=== PATIENT | male | born 1965 | race African-American/Black ===

== ENCOUNTER → 2016-06-21 | Outpatient (CLI) | payer OTHER ==
[2015-04-01 11:45] VITALS: BP 160/80
[~2016-06-21] MED LIST: ALLO300T PO; ASPI-482 PO; CARV25TA2 PO; CIPR500T94 PO; CLIN300C86 PO; HYDR-2666 PO; HYDR25TA9 PO; LISI-334 PO; LISI40TA PO; MELO-150 PO; METF850T2 PO; TERA1CAP3 PO; TERA2CAP3 PO; TRAM50TA PO
--- NOTE | 2016-06-21 10:25 | RAD ---
EXAM: Abdomen and pelvis CT without intravenous contrast. HISTORY: Microhematuria. Left-sided pain. TECHNIQUE: Computed tomographic images of the abdomen and pelvis were obtained without contrast. Multiplanar reformatting was performed. COMPARISON: 01/07/2015. FINDINGS: Evaluation of the lower thorax demonstrates bilateral basilar atelectasis. There is cardiomegaly and a small pericardial effusion. There is hepatomegaly and hepatic steatosis. The gallbladder, pancreas, spleen and adrenal glands are unremarkable. There is no evidence of nephrolithiasis or obstructive uropathy. The bladder is decompressed. The prostate is normal in size. The appendix is normal in appearance. There is distal colonic diverticulosis without evidence of diverticulitis. There is no bowel obstruction. No pathologically enlarged lymph node is seen. There is an infrarenal abdominal aortic aneurysm measuring 3.2 cm. 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 There is degenerative change throughout the lumbar spine. 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 IMPRESSION: 1. No evidence of nephrolithiasis or obstructive uropathy. The previously demonstrated renal stones and right ureteropelvic junction stone or are no longer seen 2. Hepatomegaly and hepatic steatosis. 3. Colonic diverticulosis. 4. Cardiomegaly with small pericardial effusion, the latter which is new compared to the prior study. 5. 3.2 cm abdominal aortic aneurysm and 2.6 cm right common iliac artery aneurysm, stable in appearance. PQRS Compliance Statement: One or more of the following individualized dose reduction techniques were utilized for this examination: 1. Automated exposure control 2. Adjustment of the mA and/or kV according to patient size 3. Use of iterative reconstruction technique
== END | disposition home or self-care (01) ==
LOC: CT 09:18
PROVIDERS: ATTEND Family Medicine
DX: M54.5 Low back pain (principal); Z87.442 Personal history of urinary calculi
CPT/HCPCS: 74176

== ENCOUNTER 2016-08-16 14:11 | Inpatient (IN) | payer OTHER ==
[~2016-08-16] VITALS: Ht 180.3 cm; Wt 164.8 kg
[2016-08-16] VITALS (8 sets, daily range): BP systolic 150–189; BP diastolic 77–113
--- NOTE | 2016-08-16 14:47 | EKG ---
[facility] [address] [place] [address] Test Date: 2016-08-16 Test Time: 14:20:59 Pat Name: MAIKOL HERNANDEZ Department: Room: Gender: M Clinic Assistant: : 1965 Requested By: ROBE SERVIN Order Number: [id number] Reading MD: Alek Chaves Measurements Intervals [place] Rate: 88 P: 39 WV: 182 QRS: -20 QRSD: 86 T: -35 QT: 390 QTc: 476 Interpretive Statements SINUS RHYTHM LEFT ATRIAL ABNORMALITY LEFTWARD AXIS PROLONGED QT Electronically Signed On 09-04-2016 16:28:33 CDT by Alek Chaves
[2016-08-16] MEDS ORDERED: IPRATRPIUM/ALBUTEROL 0.5/2.5MG 3 ML NEBU. NEB ONE (15:30)
--- NOTE | 2016-08-16 15:31 | RAD ---
AP portable chest radiograph 08/16/2016 Clinical History: Shortness of breath for 3 days An AP portable erect digital radiograph of the chest was obtained. Comparison study is dated 04/18/2012. The cardiac silhouette is mildly enlarged. The thoracic aorta is tortuous. Prominence of the pulmonary vasculature is seen which could reflect mild CHF. Left midlung subsegmental atelectasis is noted. No pneumothorax or pleural effusion is seen. Degenerative changes are seen involving the thoracic spine. Impression: Prominence of the pulmonary vasculature is seen which could reflect mild CHF. Clinical correlation is recommended.
[2016-08-16 15:33] LABS: BASO # 0.1 x10^3/uL (0.0-0.2); BASO % 1 % (0-3); EOS % 7 % (0-3); HEMATOCRIT 46.9 % (39.0-53.0); LYMPH # 2.3 x10^3/uL (1.0-4.8); LYMPH % 26 % (24-48); MEAN CORPUSCULAR HEMOGLOBIN 30 pg (25-35); MEAN CORPUSCULAR HGB CONC 32 g/dL (31-37); MEAN CORPUSCULAR VOLUME 94 fL (79-100); MONO % 5 % (0-9); NEUT % 61 % (31-73); PLATELET COUNT 266 x10^3/uL (140-400); RED BLOOD COUNT 5.01 x10^6/uL (4.30-5.70)
--- NOTE | 2016-08-16 15:38 | PHYS DOC ---
Past Medical History Past Medical History: Asthma, High Cholesterol, Hypertension Additional Past Medical Histor: obesisty,kidney stones Past Surgical History: No Surgical History Alcohol Use: None Drug Use: None Adult General Chief Complaint Chief Complaint: SHORTNESS OF BREATH HPI HPI Patient is a 50 year old male who presents with complaint of shortness of breath for the past 2 days. Patient states his symptoms have progressively worsened during that time. Patient denies fevers or chest pain but does admit to dyspnea on exertion. The patient was found at triage to have a oxygen saturation of 86% was placed on oxygen nasal cannula prior to my patient interview. Patient states that he has had productive cough of yellowish phlegm. Patient denies any swelling in his lower extremities. Patient has history of asthma and hypertension. Denies chest pain. Review of Systems Review of Systems Constitutional: Denies fever or chills [] Eyes: Denies change in visual acuity, redness, or eye pain [] HENT: Denies nasal congestion or sore throat [] Respiratory: Shortness of breath, cough [] Cardiovascular: Dyspnea on exertion, denies chest pain or edema [] GI: Denies abdominal pain, nausea, vomiting, bloody stools or diarrhea [] : Denies dysuria or hematuria [] Musculoskeletal: Denies back pain or joint pain [] Integument: Denies rash or skin lesions [] Neurologic: Denies headache, focal weakness or sensory changes [] Current Medications Current Medications Current Medications Medications (Trade) Dose Ordered Sig/Hamida Start Time Stop Time Status Last Admin Dose Admin Albuterol/ Ipratropium (Duoneb) 6 ml 1X ONCE 08/16/16 15:30 08/16/16 15:31 DC 08/16/16 15:44 6 ML Allergies Allergies Allergies Coded Allergies Type Severity Reaction Last Updated Verified No Known Drug Allergies 04/01/15 No Physical Exam Physical Exam Constitutional: Alert, obese, afebrile, appears in mild to moderate restriction distress. [] HENT: Normocephalic, atraumatic, bilateral external ears normal, oropharynx moist, no oral exudates, nose normal. [] Eyes: PERRLA, EOMI, conjunctiva normal, no discharge. [] Neck: Normal range of motion, no tenderness, supple, no stridor. [] Cardiovascular:Heart rate regular rhythm, no murmur [] Lungs & Thorax: Moderate restriction of air movement bilaterally, mild expiratory wheezes bilaterally, rales bilaterally [] Abdomen: Bowel sounds normal, soft, no tenderness, no masses, no pulsatile masses. [] Skin: Warm, dry, no erythema, no rash. [] Back: No tenderness, no CVA tenderness. [] Extremities: No tenderness, no cyanosis, no clubbing, ROM intact, trace pedal edema bilaterally. [] Neurologic: Alert and oriented X 3, normal motor function, normal sensory function, no focal deficits noted. [] Current Patient Data Vital Signs Vital Signs Date Time Temp Pulse Resp B/P Pulse Ox O2 Delivery O2 Flow Rate FiO2 08/16/16 16:45 80 20 208/117 93 Nasal Cannula 2 08/16/16 14:22 98.0 98.0 Lab Values Laboratory Tests Test 08/16/16 15:20 08/16/16 16:08 White Blood Count 9.0x10^3/uL (4.0-11.0) Red Blood Count 5.01x10^6/uL (4.30-5.70) Hemoglobin 15.0g/dL (13.0-17.5) Hematocrit 46.9% (39.0-53.0) Mean Corpuscular Volume 94fL (79-100) Mean Corpuscular Hemoglobin 30pg (25-35) Mean Corpuscular Hemoglobin Concent 32g/dL (31-37) Red Cell Distribution Width 15.0% (11.5-14.5) H Platelet Count 266x10^3/uL (140-400) Neutrophils (%) (Auto) 61% (31-73) Lymphocytes (%) (Auto) 26% (24-48) Monocytes (%) (Auto) 5% (0-9) Eosinophils (%) (Auto) 7% (0-3) H Basophils (%) (Auto) 1% (0-3) Neutrophils # (Auto) 5.5x10^3uL (1.8-7.7) Lymphocytes # (Auto) 2.3x10^3/uL (1.0-4.8) Monocytes # (Auto) 0.4x10^3/uL (0.0-1.1) Eosinophils # (Auto) 0.6x10^3/uL (0.0-0.7) Basophils # (Auto) 0.1x10^3/uL (0.0-0.2) Sodium Level 145mmol/L (136-145) Potassium Level 3.7mmol/L (3.5-5.1) Chloride Level 105mmol/L (98-107) Carbon Dioxide Level 37mmol/L (21-32) H Anion Gap 3 (6-14) L Blood Urea Nitrogen 31mg/dL (8-26) H Creatinine 1.3mg/dL (0.7-1.3) Estimated GFR (Cockcroft-Gault) 70.1 BUN/Creatinine Ratio 24 (6-20) H Glucose Level 134mg/dL (70-99) H Lactic Acid Level 1.9mmol/L (0.4-2.0) Calcium Level 8.9mg/dL (8.5-10.1) Total Bilirubin 0.6mg/dL (0.2-1.0) Aspartate Amino Transferase (AST) 72U/L (15-37) H Alanine Aminotransferase (ALT) 210U/L (16-63) H Alkaline Phosphatase 87U/L (46-116) Creatine Kinase 397U/L (39-308) H Creatine Kinase MB (Mass) 4.1ng/mL (0.0-3.6) H Creatine Kinase MB Relative Index 1.0% (0-4) Troponin I Quantitative 0.044ng/mL (0.000-0.055) ES-Rcp-R-Type Natriuretic Peptide 2340pg/mL (0-124) H Total Protein 6.8g/dL (6.4-8.2) Albumin 2.9g/dL (3.4-5.0) L Albumin/Globulin Ratio 0.7 (1.0-1.7) L Influenza Type A Antigen Negative (NEGATIVE) Influenza Type B Antigen Negative (NEGATIVE) Urine Collection Type Unknown Urine Color Yellow Urine Clarity Clear Urine pH 5.5 Urine Specific [place] 1.020 Urine Protein >=300mg/dL (NEG-TRACE) Urine Glucose (UA) Negativemg/dL (NEG) Urine Ketones (Stick) Negativemg/dL (NEG) Urine Blood Small (NEG) Urine Nitrite Negative (NEG) Urine Bilirubin Negative (NEG) Urine Urobilinogen Dipstick 0.2mg/dL (0.2 mg/dL) Urine Leukocyte Esterase Negative (NEG) Urine RBC 3-5/HPF (0-2) Urine WBC 1-4/HPF (0-4) Urine Bacteria 0/HPF (0-FEW) Urine Hyaline Casts Moderate/HPF Urine Mucus Mod/LPF Laboratory Tests 08/16/16 15:20 Laboratory Tests 08/16/16 15:20 EKG EKG Interpreted by me: Heart rate 88, sinus rhythm, normal intervals, normal axis, no acute ST/T-wave abnormalities present [] Radiology/Procedures Radiology[facility]Procedures [facility] [address] [place] [address] IMAGING REPORT Signed PATIENT: MAIKOL HERNANDEZ ACCOUNT: [id number] : 1965 LOCATION: ER AGE: 50 SEX: M EXAM STATUS: REG ER ORD. PHYSICIAN: ROBE SERVIN MD REASON: shortness of breath PROCEDURE: PORTABLE CHEST 1V AP portable chest radiograph 08/16/2016 Clinical History: Shortness of breath for 3 days An AP portable erect digital radiograph of the chest was obtained. Comparison study is dated 04/18/2012. The cardiac silhouette is mildly enlarged. The thoracic aorta is tortuous. Prominence of the pulmonary vasculature is seen which could reflect mild CHF. Left midlung subsegmental atelectasis is noted. No pneumothorax or pleural effusion is seen. Degenerative changes are seen involving the thoracic spine. Impression: Prominence of the pulmonary vasculature is seen which could reflect mild CHF. Clinical correlation is recommended. DICTATED and SIGNED BY: JULY PACK MD DATE: 08/16/16 1526 CC: ROBE SERVIN MD; LISA CHAVEZ MD ~ [] Course & Med Decision Making Course & Med Decision Making Pertinent Labs and Imaging studies reviewed. (See chart for details) Patient was given DuoNeb breathing treatments in the emergency department with mild improvement in symptoms. The patient was found to have pulmonary edema on his chest x-ray. Patient has no prior history of congestive heart failure, however it appears that the patient's symptoms may be a result of malignant hypertension. The patient was started on Cardene after consult with Dr. Chaves of cardiology and patient was given 60 mg of IV Lasix. I spoke with Dr. Ordonez who is on-call for Dr. Chavez and he accepted care of patient in hospital. Critical care time excluding procedures: 45 minutes Dragon Disclaimer Dragon Disclaimer This electronic medical record was generated, in whole or in part, using a voice recognition dictation system. Departure Departure Impression: Primary Impression: Pulmonary edema Additional Impressions: Congestive heart failure Malignant hypertension Moderate protein malnutrition Asthma Disposition: ADMITTED INPATIENT Admitting Physician: Lisa Chavez Condition: STABLE Referrals: LISA CHAVEZ MD (PCP) Problem Qualifiers Primary Impression: Pulmonary edema Chronicity: acute Qualified Code: J81.0 - Acute pulmonary edema Additional Impressions: Congestive heart failure Congestive heart failure type: unspecified congestive heart failure type Congestive heart failure chronicity: acute Qualified Code: I50.9 - Heart failure, unspecified Asthma Asthma severity: moderate persistent Asthma complication type: uncomplicated Qualified Code: J45.40 - Moderate persistent asthma, uncomplicated ROBE SERVIN MD Aug 16, 2016 15:38
[2016-08-16 15:52] LABS: CALCIUM 8.9 mg/dL (8.5-10.1); CREATININE 1.3 mg/dL (0.7-1.3); GFR 70.1; POTASSIUM 3.7 mmol/L (3.5-5.1)
[2016-08-16 16:03] LABS: OBC FLU VALID
[2016-08-16 16:04] LABS: ALBUMIN 2.9 g/dL (3.4-5.0); ALBUMIN/GLOBULIN RATIO 0.7 (1.0-1.7); TOTAL BILIRUBIN 0.6 mg/dL (0.2-1.0); TOTAL PROTEIN 6.8 g/dL (6.4-8.2)
[2016-08-16 16:18] LABS: BILIRUBIN,URINE NEGATIVE (NEG); GLUCOSE,URINE NEGATIVE (NEG); NITRITE,URINE NEGATIVE (NEG); PH,URINE 5.5; PROTEIN,URINE >=300 mg/dL (NEG-TRACE); UROBILINOGEN,URINE 0.2 mg/dL (0.2 mg/dL)
[2016-08-16 16:24] LABS: CKMB MASS 4.1 ng/mL (0.0-3.6)
[2016-08-16 16:27] LABS: BACTERIA,URINE 0 /HPF (0-FEW)
[2016-08-16] MEDS ORDERED: FUROSEMIDE 40 MG/4 ML VIAL IVP ONE (17:30)
[2016-08-16] MEDS: NICARDIPINE HCL 50 MG in IV NORMAL SALINE 250ML 250 ML IV PRN (17:52)
[2016-08-16] MEDS ORDERED: IV NORMAL SALINE 1000ML BAG 1,000 ML IV SCH (18:09)
[2016-08-16] MEDS ORDERED: ACETAMINOPHEN 325 MG TABLET. PO PRN (18:15)
[2016-08-16] MEDS ORDERED: ONDANSETRON PF 4 MG/2 ML VIAL. IV PRN (18:15)
[2016-08-16] MEDS ORDERED: ASPI81TA50 PO (19:12)
[2016-08-16] MEDS ORDERED: DEXTROSE 50% 25 GM / 50ML DISP.SYRIN. IV PRN (19:45)
[2016-08-16] MEDS ORDERED: ENOXAPARIN 40 MG/0.4 ML SYRINGE. SQ SCH (22:30)
[2016-08-17] VITALS (18 sets, daily range): BP systolic 140–174; BP diastolic 72–117
[2016-08-17] MEDS: NICARDIPINE HCL 50 MG in IV NORMAL SALINE 250ML 250 ML IV PRN (01:49)
[2016-08-17 06:02] LABS: BASO # 0.1 x10^3/uL (0.0-0.2); BASO % 1 % (0-3); EOS % 9 % (0-3); HEMATOCRIT 49.4 % (39.0-53.0); HEMOGLOBIN 15.9 g/dL (13.0-17.5); LYMPH # 2.6 x10^3/uL (1.0-4.8); LYMPH % 29 % (24-48); MEAN CORPUSCULAR HEMOGLOBIN 30 pg (25-35); MEAN CORPUSCULAR HGB CONC 32 g/dL (31-37); MEAN CORPUSCULAR VOLUME 92 fL (79-100); MONO % 6 % (0-9); NEUT % 55 % (31-73); PLATELET COUNT 293 x10^3/uL (140-400); RED CELL DISTRIBUTION WIDTH 14.8 % (11.5-14.5); WHITE BLOOD COUNT 9.1 x10^3/uL (4.0-11.0)
[2016-08-17 06:19] LABS: CALCIUM 9.2 mg/dL (8.5-10.1); CREATININE 1.1 mg/dL (0.7-1.3); GFR 85.1; POTASSIUM 3.7 mmol/L (3.5-5.1)
--- NOTE | 2016-08-17 07:48 | ACF ---
Admission Forms Criteria HEART FAILURE: COMMON COMPLICATIONS Clinical Indications for Inpatient Care (Place 'X' for any and all applicable criteria): Ongoing inpatient care may be indicated for heart failure with ANY ONE of the following (1)(2)(3)(4)(5): [ ]I. Ongoing need for care for primary condition requiring frequent therapy adjustments because of changes in cardiac function (eg, drug dosage changes for drugs that are renally metabolized) [ ]II. New-onset heart failure [ ]III. Heart failure with decreased urine output not responsive to attempts to optimize volume status [ ]IV. Acute cardiac ischemia causing or associated with failure [X]V. Complications of heart failure, including ANY ONE of the following: [ ]a) Pericardial effusion [ ]b) Symptomatic pleural effusion [ ]c) O2 saturation <90% or PO2 < 60 mm Hg (8.0 kPa) on room air or require baseline supplemental O2 [ ]d) Tachypnea [X]e) Dyspnea [ ]f) Syncope [ ]g) Change in mental status [ ]h) Acute renal insufficiency that is severe (reduction of more than 50% in estimated glomerular filtration rate from baseline) or progressive reduction of more than 25% in estimated glomerular filtration rate from baseline, with creatinine continuing to rise) [ ]i) Hemodynamic instability [ ]j) Anasarca [ ]k) Clinically significant metabolic abnormalities due to heart failure (eg, new-onset metabolic acidosis) Extended stay beyond goal length of stay for primary condition may be needed until ALL of the following are present(1)(3): [ ]a) Stable and effective diuretic regimen established (or patient on stable dialysis regimen if in chronic renal failure) [ ]b) Breathing comfortably at rest [ ]c) Saturation of arterial oxygen greater than 90% or at acceptable baseline [ ]d) Pulmonary edema absent or improved [ ]e) Hemodynamic stability [ ]f) Volume status acceptable on oral medication [ ]g) Peripheral or sacral edema absent or improved [ ]h) Renal function stable and manageable at a lower level of care [ ]i) Complications (eg, pleural effusion) resolved or manageable at a lower level of care [ ]j) Patient or caregiver has received written discharge instructions or educational material addressing activity level, diet, discharge medications, follow-up appointment, weight monitoring, and what to do if symptoms worsen The original [employer] content created by [email or web address] has been revised. The portions of the content which have been revised are identified through the use of italic text or in bold, and [facility] has neither reviewed nor approved the modified material.All other unmodified content is copyright [facility]. Please see references footnoted in the original [facility] edition 2016 Admission Criteria Met?: Yes POLA WARE Aug 17, 2016 07:48
[2016-08-17] MEDS: INSULIN ASPART 300 UNITS/3 ML INSULN.PEN SQ SCH ×3 (08:00→17:00)
[2016-08-17] MEDS ORDERED: LISINOPRIL 40 MG TABLET. PO SCH (09:00)
[2016-08-17] MEDS ORDERED: HYDROCHLOROTHIAZIDE 25 MG TABLET PO SCH (09:00)
--- NOTE | 2016-08-17 09:00 | RAD ---
Chest, 2 views, 08/17/2016: History: Shortness of breath, follow-up congestive heart failure Comparison is made to a study from 08/16/2016. The heart is enlarged. There is tortuosity of the thoracic aorta. The pulmonary vascularity is now within normal limits. There is minimal linear atelectasis or scarring in the lingula. No pulmonary consolidation is seen. There is no definite pleural fluid. IMPRESSION: 1. Cardiomegaly and aortic ectasia. 2. Minimal lingular atelectasis or scarring.
--- NOTE | 2016-08-17 10:23 | PDOC2 ---
CARDIAC CONSULT DATE OF CONSULT Date of Consult DATE: 08/17/16 TIME: 09 REASON FOR CONSULT Reason for Consult: CHF, HTN REFERRING PHYSICIAN Referring Physician: Jaspal SOURCE Source: Chart review, Patient HISTORY OF PRESENT ILLNESS HISTORY OF PRESENT ILLNESS This is a pleasant 50 yo male admitted for complains of SOA. Primarily pt reports of being sedentary, noncompliant of diet, and does not exercise. He is morbidly obese and currently on disability related to chronic pain. Reports that lately he has been more tired than usual and has been having insomnia No recent respiratory infection, fever or chills. 2 days ago he woke up at night being SOA, he could not lay down at that point . He has been having nonproductive cough. Positive for orthopnea. No increased leg swelling. Reports of GASTELUM. This continued on prompting him to come in to ED. REports no chest pain, palpitations. Denies being tested for GENA. He is morbidly obese, noncompliant with lifestyle modifications but verbalized compliance with his medications. Denies any CAD, VTE, falls or any recent injury. Unfortunately, he continue to smoke tobacco but no use of recreational drugs. He does not take any ASA nor statin. He has DM2 and HTN but does not check his BP nor his BG. PAST MEDICAL HISTORY Cardiovascular: HTN Pulmonary: No pertinent hx CENTRAL NERVOUS SYSTEM: Periperal neuropathy GI: GERD Heme/Onc: No pertinent hx Hepatobiliary: No pertinent hx Psych: No pertinent hx Musculoskeletal: low back pain (chronic pain), Osteoarthritis, Other (morbid obesity) Rheumatologic: Gout Infectious disease: No pertinent hx ENT: No pertinent hx Renal/: Other (renal calculi) Endocrine: Diabetes (2) Dermatology: No pertinent hx PAST SURGICAL HISTORY Past Surgical History: Other (ureteroscopy) FAMILY HISTORY Family History: Coronary Artery Disease (sister) SOCIAL HISTORY Smoke: 1 pack per day (>30 yrs) ALCOHOL: none Drugs: None Lives: Alone CURRENT MEDICATIONS CURRENT MEDICATIONS Current Medications Medications (Trade) Dose Ordered Sig/Hamida Route PRN Reason Start Time Stop Time Status Last Admin Dose Admin Albuterol/ Ipratropium (Duoneb) 6 ml 1X ONCE NEB 08/16/16 15:30 08/16/16 15:31 DC 08/16/16 15:44 Furosemide 60 mg 60 mg 1X ONCE IVP 08/16/16 17:30 08/16/16 17:31 DC 08/16/16 17:47 Nicardipine HCl/ Sodium Chloride (Cardene/Iv Sodium Chloride 0.9% 250ml) 270 ml @ 0 mls/hr CONT PRN IV SEE I/O RECORD 08/16/16 17:30 08/17/16 09:53 DC 08/17/16 01:49 Acetaminophen (Tylenol) 650 mg PRN Q4HRS PRN PO FEVER 08/16/16 18:15 08/17/16 18:14 08/16/16 22:28 Enoxaparin Sodium (Lovenox 40mg Syringe) 40 mg Q24H SQ 08/16/16 22:30 08/17/16 09:46 DC 08/16/16 22:37 ALLERGIES ALLERGIES: Coded Allergies: No Known Drug Allergies (Unverified , 04/01/15) ROS Review of System 14 point ROS evaluated with pertinent positives noted per HPI PHYSICAL EXAM General: Alert, Oriented X3, Cooperative, No acute distress HEENT: Atraumatic, Mucous membr. moist/pink Lungs: Other (faint basilar crackles) Heart: Regular rate, Normal S1, Normal S2, Other (distant heart sounds) Abdomen: Soft, Other (morbid obesity) Extremities: No cyanosis, Other (trace LE edema) Skin: No breakdown, No significant lesion Neuro: Normal speech, Sensation intact Psych/Mental Status: Mental status NL, Mood NL MUSCULOSKELETAL: Osteoarthritic changes both hands VITALS VITALS Vital Signs Date Time Temp Pulse Resp B/P Pulse Ox O2 Delivery O2 Flow Rate FiO2 08/17/16 07:00 97.3 95 20 140/81 94 Nasal Cannula 97.3 08/17/16 03:20 2.0 LABS Lab: Laboratory Tests Test 08/16/16 15:20 08/16/16 16:08 08/16/16 20:53 08/17/16 00:22 White Blood Count 9.0x10^3/uL (4.0-11.0) Red Blood Count 5.01x10^6/uL (4.30-5.70) Hemoglobin 15.0g/dL (13.0-17.5) Hematocrit 46.9% (39.0-53.0) Mean Corpuscular Volume 94fL (79-100) Mean Corpuscular Hemoglobin 30pg (25-35) Mean Corpuscular Hemoglobin Concent 32g/dL (31-37) Red Cell Distribution Width 15.0% (11.5-14.5) Platelet Count 266x10^3/uL (140-400) Neutrophils (%) (Auto) 61% (31-73) Lymphocytes (%) (Auto) 26% (24-48) Monocytes (%) (Auto) 5% (0-9) Eosinophils (%) (Auto) 7% (0-3) Basophils (%) (Auto) 1% (0-3) Neutrophils # (Auto) 5.5x10^3uL (1.8-7.7) Lymphocytes # (Auto) 2.3x10^3/uL (1.0-4.8) Monocytes # (Auto) 0.4x10^3/uL (0.0-1.1) Eosinophils # (Auto) 0.6x10^3/uL (0.0-0.7) Basophils # (Auto) 0.1x10^3/uL (0.0-0.2) Sodium Level 145mmol/L (136-145) Potassium Level 3.7mmol/L (3.5-5.1) Chloride Level 105mmol/L (98-107) Carbon Dioxide Level 37mmol/L (21-32) Anion Gap 3 (6-14) Blood Urea Nitrogen 31mg/dL (8-26) Creatinine 1.3mg/dL (0.7-1.3) Estimated GFR (Cockcroft-Gault) 70.1 BUN/Creatinine Ratio 24 (6-20) Glucose Level 134mg/dL (70-99) Lactic Acid Level 1.9mmol/L (0.4-2.0) Calcium Level 8.9mg/dL (8.5-10.1) Total Bilirubin 0.6mg/dL (0.2-1.0) Aspartate Amino Transf (AST/SGOT) 72U/L (15-37) Alanine Aminotransferase (ALT/SGPT) 210U/L (16-63) Alkaline Phosphatase 87U/L (46-116) Creatine Kinase 397U/L (39-308) Creatine Kinase MB (Mass) 4.1ng/mL (0.0-3.6) Creatine Kinase MB Relative Index 1.0% (0-4) Troponin I Quantitative 0.044ng/mL (0.000-0.055) 0.055ng/mL (0.000-0.055) CK-Hfq-Q-Type Natriuretic Peptide 2340pg/mL (0-124) Total Protein 6.8g/dL (6.4-8.2) Albumin 2.9g/dL (3.4-5.0) Albumin/Globulin Ratio 0.7 (1.0-1.7) Influenza Type A Antigen Negative (NEGATIVE) Influenza Type B Antigen Negative (NEGATIVE) Urine Collection Type Unknown Urine Color Yellow Urine Clarity Clear Urine pH 5.5 Urine Specific [place] 1.020 Urine Protein >=300mg/dL (NEG-TRACE) Urine Glucose (UA) Negativemg/dL (NEG) Urine Ketones (Stick) Negativemg/dL (NEG) Urine Blood Small (NEG) Urine Nitrite Negative (NEG) Urine Bilirubin Negative (NEG) Urine Urobilinogen Dipstick 0.2mg/dL (0.2 mg/dL) Urine Leukocyte Esterase Negative (NEG) Urine RBC 3-5/HPF (0-2) Urine WBC 1-4/HPF (0-4) Urine Bacteria 0/HPF (0-FEW) Urine Hyaline Casts Moderate/HPF Urine Mucus Mod/LPF Glucose (Fingerstick) 103mg/dL (70-99) Test 08/17/16 05:55 08/17/16 08:08 White Blood Count 9.1x10^3/uL (4.0-11.0) Red Blood Count 5.40x10^6/uL (4.30-5.70) Hemoglobin 15.9g/dL (13.0-17.5) Hematocrit 49.4% (39.0-53.0) Mean Corpuscular Volume 92fL (79-100) Mean Corpuscular Hemoglobin 30pg (25-35) Mean Corpuscular Hemoglobin Concent 32g/dL (31-37) Red Cell Distribution Width 14.8% (11.5-14.5) Platelet Count 293x10^3/uL (140-400) Neutrophils (%) (Auto) 55% (31-73) Lymphocytes (%) (Auto) 29% (24-48) Monocytes (%) (Auto) 6% (0-9) Eosinophils (%) (Auto) 9% (0-3) Basophils (%) (Auto) 1% (0-3) Neutrophils # (Auto) 5.0x10^3uL (1.8-7.7) Lymphocytes # (Auto) 2.6x10^3/uL (1.0-4.8) Monocytes # (Auto) 0.6x10^3/uL (0.0-1.1) Eosinophils # (Auto) 0.8x10^3/uL (0.0-0.7) Basophils # (Auto) 0.1x10^3/uL (0.0-0.2) Sodium Level 145mmol/L (136-145) Potassium Level 3.7mmol/L (3.5-5.1) Chloride Level 102mmol/L (98-107) Carbon Dioxide Level 40mmol/L (21-32) Anion Gap 3 (6-14) Blood Urea Nitrogen 25mg/dL (8-26) Creatinine 1.1mg/dL (0.7-1.3) Estimated GFR (Cockcroft-Gault) 85.1 Glucose Level 141mg/dL (70-99) Calcium Level 9.2mg/dL (8.5-10.1) Troponin I Quantitative 0.057ng/mL (0.000-0.055) Glucose (Fingerstick) 225mg/dL (70-99) ASSESSMENT/PLAN ASSESSMENT/PLAN 1. Malignant HTN 2. Acute diastolic CHF: now compensated after IV lasix. mainly from #1, but generally multifactorial 3. Tobaccoism 4. DM2 5. 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 Morbid obesity/CUMMINGS: BMI 50 7. Suspected GENA Recommendations 1. DC lisinopril and HCTZ 2. Titrate off cardene. Start on losartan and po lasix. Hydralazine IV PRN 3. Continue with high dose coreg. Will consider adding norvasc pending BP trend today. 4. TTE, renal duplex today. 5. TSH, lipid panel, A1C. 6. Dietitian consult, smoking cessation 7. Discussed significantly regarding lifetyle modification including exercise, BP/BG monitoring and limitation on sodium intake. 8. Will need significant weight reduction and GENA workup as an outpt. 9. Start on statin and continue routine ASA dosing 10. If no prior stress test, will recommend future testing as an outpt for further risk stratification 11. Also consider alternative for NSAID. Problems: BEN MCLAUGHLIN [employer]OR VEHICLE COMPLIANCE ANALYST Aug 17, 2016 10:23
[2016-08-17 10:24] LABS: CHOLESTEROL/HDL RATIO 2.6
[2016-08-17] MEDS ORDERED: PNEUMOCOCCAL VAX SCREEN BY RX. MC ONE (11:00)
[2016-08-17] MEDS ORDERED: CYCL10TA2 PO (11:00)
--- NOTE | 2016-08-17 11:20 | RAD ---
EXAM: RENAL DOPPLER ULTRASOUND. HISTORY: Hypertension. COMPARISON: None. FINDINGS: Grayscale and Doppler analysis of the renal vasculature was performed bilaterally. Grayscale analysis of the kidneys was also performed. The peak systolic velocities within the proximal, mid and distal right renal artery are 59 cm/s, 67 cm/s and 63 cm/s, respectively. Resistive indices measure 0.57-0.68. The right renal vein is patent. The corresponding measurements on the left are 69 cm/s, 80 cm/s and 61 cm/s, respectively. Resistive indices measure 0.64-0.70. The left renal vein is patent. The right kidney measures 11.8 cm. Cortical thickness and echogenicity are preserved. There is no hydronephrosis. The left kidney measures 11.2 cm. Cortical thickness and echogenicity are preserved. There is no hydronephrosis. Hypoechogenicity of the hepatic parenchyma is consistent with diffuse hepatic steatosis. IMPRESSION: 1. No evidence of hemodynamically significant stenosis. 2. Unremarkable examination of the kidneys. No hydronephrosis. 3. Diffuse hepatic steatosis.
[2016-08-17] MEDS: ALLOPURINOL 300 MG TABLET. PO SCH (12:27)
[2016-08-17] MEDS: TERAZOSIN 1 MG CAPSULE. PO SCH (12:28)
[2016-08-17] MEDS: MELOXICAM 7.5 MG TABLET PO SCH (12:28)
[2016-08-17] MEDS: ASPIRIN ENTERIC COATED 81 MG TABLET.DR. PO SCH (12:28)
[2016-08-17] MEDS: FUROSEMIDE 40 MG TABLET PO SCH (12:28)
[2016-08-17] MEDS: CARVEDILOL 12.5 MG TABLET PO SCH ×2 (12:29→17:36)
[2016-08-17] MEDS: LOSARTAN POTASSIUM 50 MG TABLET. PO SCH (12:31)
[2016-08-17] MEDS: ENOXAPARIN ** NOTE DOSE ** SYRINGE SQ SCH ×2 (12:31→21:20)
--- NOTE | 2016-08-17 12:51 | CARD ---
APPROVED REPORT EXAM: Two-dimensional and M-mode echocardiogram with Doppler and color Doppler. Other Information Quality : GoodHR: 78bpm Rhythm : NSR INDICATION Congestive Heart Failure RISK FACTORS Hypertension Obesity 2D DIMENSIONS RVDd2.6 (2.9-3.5cm)Left Atrium(2D)3.8 (1.6-4.0cm) IVSd2.0 (0.7-1.1cm)Aortic Root(2D)3.8 (2.0-3.7cm) LVDd4.4 (3.9-5.9cm)LVOT Diameter2.7 (1.8-2.4cm) PWd1.8 (0.7-1.1cm)LVDs3.3 (2.5-4.0cm) FS (%) 25.8 %SV45.6 ml LVEF(%)51.0 (>50%) Aortic Valve AoV Peak Dave.125.4cm/sAoV VTI24.9cm AO Peak GR.6.3mmHgLVOT Peak Dave.99.4cm/s AO Mean GR.4mmHgAVA (VMAX)4.40cm2 Mitral Valve MV E Midhbzrg73.8cm/sMV E Peak Gr.4mmHg MV DECEL [id number] A Uulpbtzh579.6cm/s MV E Mean Gr.2mmHgE/A Ratio0.7 MV A [id number] Pulmonary Valve PV Peak Hduesmdv41.5cm/s Tricuspid Valve TR P. Qavnqews335gh/sTR Peak Gr.49mmHg Pulmonary Vein S1 Edbcllyn32.8cm/sD2 Alkdlwqh92.1cm/s PVa [id number] LEFT VENTRICLE The left ventricle is normal size. There is moderate concentric left ventricular hypertrophy. The ech o findings are consistent with hypertrophic cardiomyopathy. The left ventricular systolic function is normal. The Ejection Fraction is 55-60%. Transmitral Doppler flow pattern is Grade I-abnormal relaxa tion pattern. RIGHT VENTRICLE The right ventricle is normal size. There is normal right ventricular wall thickness. The right ventr icular systolic function is normal. ATRIA The left atrium is mildly dilated. The right atrium size is normal. The interatrial septum is intact with no evidence for an atrial septal defect or patent foramen ovale as noted on 2-D or Doppler imagi ng. AORTIC VALVE The aortic valve is mildly thickened. Doppler and Color Flow revealed no significant aortic regurgita tion. There is no significant aortic valvular stenosis. MITRAL VALVE The mitral valve leaflets are thickened. There is no evidence of mitral valve prolapse. There is no m itral valve stenosis. Doppler and Color Flow revealed trace mitral regurgitation. TRICUSPID VALVE Doppler and Color Flow revealed trace tricuspid regurgitation. The pulmonary artery systolic pressure is estimated at 40-50 mmHg. There is moderate pulmonary hypertension. PULMONIC VALVE The pulmonary valve is normal in structure and function. Doppler and Color Flow revealed no pulmonic valvular regurgitation. There is no pulmonic valvular stenosis. GREAT VESSELS The aortic root is normal in size. The ascending aorta is normal in size. The pulmonary artery is nor mal. The IVC is normal in size and collapses >50% with inspiration. PERICARDIAL EFFUSION There is no evidence of significant pericardial effusion. Critical Notification Critical Value: No <Conclusion> The left ventricular systolic function is normal. The Ejection Fraction is 55-60%. There is moderate concentric left ventricular hypertrophy. Transmitral Doppler flow pattern is Grade I-abnormal relaxation pattern. Trace mitral regurgitation. Trace tricuspid regurgitation. There is no evidence of significant pericardial effusion.
--- NOTE | 2016-08-17 15:48 | HP ---
ADMIT DATE: 08/16/2016 CHIEF COMPLAINT: Shortness of breath. HISTORY OF PRESENT ILLNESS AND HOSPITAL COURSE: This patient is a 50-year-old, obese, male who states that he went to an [facility] and felt somewhat ill for 2 or 3 days and became increasingly short of breath on the day of admission. He came to the Emergency Room, was evaluated and was found to have an elevated BNP as well as evidence of vascular congestion on chest x-ray. The patient also had an extremely high blood pressure of 208/117. Despite ER management, patient required admission and Cardiology consultation for suspected hypertensive emergency with diastolic congestive heart failure. PAST MEDICAL HISTORY: 1. Morbid obesity. 2. Type 2 diabetes. 3. Hypertension. 4. High cholesterol. 5. Osteoarthritis. 6. Abnormal LFTs possibly due to fatty liver. FAMILY HISTORY: Reveals a mother who with heart disease, hypertension and required dialysis and father who with complications of diabetes. SOCIAL HISTORY: The patient smokes half pack per day. He denies alcohol use. He is single, unemployed. MEDICATIONS: The patient's medications on previous office visit included Flexeril 10 mg 3 times a day, Allopurinol 300 mg daily, terazosin 2 mg daily, tramadol 50 mg 4 times a day as needed, lisinopril 40 mg daily, hydrochlorothiazide 25 mg daily, Coreg 25 mg b.i.d., meloxicam 50 mg daily, aspirin 81 mg daily, metformin 850 mg half a tablet twice a day. REVIEW OF SYSTEMS: The patient was doing well until a large meal approximately 3 days prior to admission. He denies any fever, chills, chest pains, nausea, vomiting. PHYSICAL EXAMINATION: GENERAL: This is a morbidly obese, male in no apparent distress on my exam approximately 12 hours after admission. After diuresing approximately 3 liters, blood pressure still remains high and he has just recently been taken off his Cardizem drip when I evaluated him. He is now on p.o. medications. HEENT: Reveals poor dentition, otherwise benign. NECK: Supple, without JVD, bruits. CARDIAC: Regular rate and rhythm without murmur. LUNGS: Clear anteriorly. ABDOMEN: Soft, nontender. EXTREMITIES: Showed 2+ pulses with 1+ edema. NEUROLOGIC: Showed no unilateral findings. ASSESSMENT: 1. Hypertensive emergency. 2. Acute diastolic congestive heart failure. 3. Morbid obesity. 4. Type 2 diabetes. 5. Hypertension, chronic. PLAN: To proceed with cardiology consultation, diuresis and blood pressure control, monitor the patient's symptoms, encourage dietary and lifestyle changes. Echocardiogram was done showing EF of 60%. We will adjust blood pressure medication. ABELARDO HILARIO MD DR: ADINA/ekaterina JOB#: [id number] / [id number]
[2016-08-17] MEDS: ATORVASTATIN CALCIUM 10 MG TABLET. PO SCH (21:19)
[2016-08-17] MEDS: hydrALAZINE 20 MG/ML VIAL. IVP PRN (23:21)
[2016-08-18 03:18] VITALS: BP 149/92
[2016-08-18 07:50] VITALS: BP 163/100
[2016-08-18] MEDS: INSULIN ASPART 300 UNITS/3 ML INSULN.PEN SQ SCH ×4 (08:00→21:00)
[2016-08-18] MEDS: ALLOPURINOL 300 MG TABLET. PO SCH (08:23)
[2016-08-18] MEDS: TERAZOSIN 1 MG CAPSULE. PO SCH (08:24)
[2016-08-18] MEDS: MELOXICAM 7.5 MG TABLET PO SCH (08:25)
[2016-08-18] MEDS: FUROSEMIDE 40 MG TABLET PO SCH (08:25)
[2016-08-18] MEDS: LOSARTAN POTASSIUM 50 MG TABLET. PO SCH (08:25)
[2016-08-18] MEDS: ASPIRIN ENTERIC COATED 81 MG TABLET.DR. PO SCH (08:25)
[2016-08-18] MEDS: CARVEDILOL 12.5 MG TABLET PO SCH ×2 (08:26→17:32)
--- NOTE | 2016-08-18 09:23 | PDOC ---
PROGRESS NOTES Subjective Subjective Patient feeling better but still requiring o2 and bp still high with need for iv hydralazine last night Objective Objective Vital Signs Date Time Temp Pulse Resp B/P Pulse Ox O2 Delivery O2 Flow Rate FiO2 08/18/16 08:26 87 163/100 08/18/16 07:50 98.1 18 93 Nasal Cannula 2.0 98.1 Intake and Output 08/18/16 07:00 Intake Total 672 ml Output Total 1400 ml Balance -728 ml Intake Oral 672 ml Output Urine Total 1400 ml # Voids 1 # Bowel Movements 1 Physical Exam Abdomen: Normal bowel sounds Heart: Regular rate Extremities: No edema General: Alert Lungs: Clear to auscultation Assessment Assessment Problems Medical Problems: (1) Asthma Status: Acute (2) Congestive heart failure Status: Acute (3) Malignant hypertension Status: Acute (4) Moderate protein malnutrition Status: Acute (5) Pulmonary edema Status: Acute 1. Hypertensive emergency. 2. Acute diastolic congestive heart failure. 3. Acute respiratory failure 4. Type 2 diabetes. 5. Hypertension, chronic. 6, Morbid obesity. Plan Plan of Care Increase BP treatment 6 min walk continue PT/OT Sleep study and C-Pap as out patient. Comment Review of Relevant I have reviewed the following items akila (where applicable) has been applied. Labs Laboratory Tests Test 08/16/16 15:20 08/16/16 16:08 08/16/16 20:53 08/17/16 00:22 White Blood Count 9.0x10^3/uL (4.0-11.0) Red Blood Count 5.01x10^6/uL (4.30-5.70) Hemoglobin 15.0g/dL (13.0-17.5) Hematocrit 46.9% (39.0-53.0) Mean Corpuscular Volume 94fL (79-100) Mean Corpuscular Hemoglobin 30pg (25-35) Mean Corpuscular Hemoglobin Concent 32g/dL (31-37) Red Cell Distribution Width 15.0% (11.5-14.5) Platelet Count 266x10^3/uL (140-400) Neutrophils (%) (Auto) 61% (31-73) Lymphocytes (%) (Auto) 26% (24-48) Monocytes (%) (Auto) 5% (0-9) Eosinophils (%) (Auto) 7% (0-3) Basophils (%) (Auto) 1% (0-3) Neutrophils # (Auto) 5.5x10^3uL (1.8-7.7) Lymphocytes # (Auto) 2.3x10^3/uL (1.0-4.8) Monocytes # (Auto) 0.4x10^3/uL (0.0-1.1) Eosinophils # (Auto) 0.6x10^3/uL (0.0-0.7) Basophils # (Auto) 0.1x10^3/uL (0.0-0.2) Sodium Level 145mmol/L (136-145) Potassium Level 3.7mmol/L (3.5-5.1) Chloride Level 105mmol/L (98-107) Carbon Dioxide Level 37mmol/L (21-32) Anion Gap 3 (6-14) Blood Urea Nitrogen 31mg/dL (8-26) Creatinine 1.3mg/dL (0.7-1.3) Estimated GFR (Cockcroft-Gault) 70.1 BUN/Creatinine Ratio 24 (6-20) Glucose Level 134mg/dL (70-99) Lactic Acid Level 1.9mmol/L (0.4-2.0) Calcium Level 8.9mg/dL (8.5-10.1) Total Bilirubin 0.6mg/dL (0.2-1.0) Aspartate Amino Transf (AST/SGOT) 72U/L (15-37) Alanine Aminotransferase (ALT/SGPT) 210U/L (16-63) Alkaline Phosphatase 87U/L (46-116) Creatine Kinase 397U/L (39-308) Creatine Kinase MB (Mass) 4.1ng/mL (0.0-3.6) Creatine Kinase MB Relative Index 1.0% (0-4) Troponin I Quantitative 0.044ng/mL (0.000-0.055) 0.055ng/mL (0.000-0.055) JV-Lnq-S-Type Natriuretic Peptide 2340pg/mL (0-124) Total Protein 6.8g/dL (6.4-8.2) Albumin 2.9g/dL (3.4-5.0) Albumin/Globulin Ratio 0.7 (1.0-1.7) Influenza Type A Antigen Negative (NEGATIVE) Influenza Type B Antigen Negative (NEGATIVE) Urine Collection Type Unknown Urine Color Yellow Urine Clarity Clear Urine pH 5.5 Urine Specific Richey 1.020 Urine Protein >=300mg/dL (NEG-TRACE) Urine Glucose (UA) Negativemg/dL (NEG) Urine Ketones (Stick) Negativemg/dL (NEG) Urine Blood Small (NEG) Urine Nitrite Negative (NEG) Urine Bilirubin Negative (NEG) Urine Urobilinogen Dipstick 0.2mg/dL (0.2 mg/dL) Urine Leukocyte Esterase Negative (NEG) Urine RBC 3-5/HPF (0-2) Urine WBC 1-4/HPF (0-4) Urine Bacteria 0/HPF (0-FEW) Urine Hyaline Casts Moderate/HPF Urine Mucus Mod/LPF Glucose (Fingerstick) 103mg/dL (70-99) Test 08/17/16 05:55 08/17/16 08:08 08/17/16 12:21 08/17/16 16:58 White Blood Count 9.1x10^3/uL (4.0-11.0) Red Blood Count 5.40x10^6/uL (4.30-5.70) Hemoglobin 15.9g/dL (13.0-17.5) Hematocrit 49.4% (39.0-53.0) Mean Corpuscular Volume 92fL (79-100) Mean Corpuscular Hemoglobin 30pg (25-35) Mean Corpuscular Hemoglobin Concent 32g/dL (31-37) Red Cell Distribution Width 14.8% (11.5-14.5) Platelet Count 293x10^3/uL (140-400) Neutrophils (%) (Auto) 55% (31-73) Lymphocytes (%) (Auto) 29% (24-48) Monocytes (%) (Auto) 6% (0-9) Eosinophils (%) (Auto) 9% (0-3) Basophils (%) (Auto) 1% (0-3) Neutrophils # (Auto) 5.0x10^3uL (1.8-7.7) Lymphocytes # (Auto) 2.6x10^3/uL (1.0-4.8) Monocytes # (Auto) 0.6x10^3/uL (0.0-1.1) Eosinophils # (Auto) 0.8x10^3/uL (0.0-0.7) Basophils # (Auto) 0.1x10^3/uL (0.0-0.2) Sodium Level 145mmol/L (136-145) Potassium Level 3.7mmol/L (3.5-5.1) Chloride Level 102mmol/L (98-107) Carbon Dioxide Level 40mmol/L (21-32) Anion Gap 3 (6-14) Blood Urea Nitrogen 25mg/dL (8-26) Creatinine 1.1mg/dL (0.7-1.3) Estimated GFR (Cockcroft-Gault) 85.1 Glucose Level 141mg/dL (70-99) Hemoglobin A1c 5.6% (4.8-5.6) Calcium Level 9.2mg/dL (8.5-10.1) Troponin I Quantitative 0.057ng/mL (0.000-0.055) Triglycerides Level 178mg/dL (0-150) Cholesterol Level 192mg/dL (0-200) LDL Cholesterol, Calculated 83mg/dL (0-100) VLDL Cholesterol, Calculated 36mg/dL (0-40) HDL Cholesterol 73mg/dL (40-60) Cholesterol/HDL Ratio 2.6 Thyroid Stimulating Hormone (TSH) 1.827uIU/mL (0.358-3.74) Glucose (Fingerstick) 225mg/dL (70-99) 98mg/dL (70-99) 92mg/dL (70-99) Test 08/18/16 08:11 Glucose (Fingerstick) 92mg/dL (70-99) Laboratory Tests Test 08/17/16 12:21 08/17/16 16:58 08/18/16 08:11 Glucose (Fingerstick) 98mg/dL (70-99) 92mg/dL (70-99) 92mg/dL (70-99) Microbiology 08/16/16 Blood Culture - Preliminary, Resulted NO GROWTH AFTER 1 DAY Medications Current Medications Albuterol/ Ipratropium (Duoneb) 6 ml 1X ONCE NEB Last administered on t 15:44; Start 08/16/16 at 15:30; Stop 08/16/16 at 15:31; Status DC Furosemide 60 mg 60 mg 1X ONCE IVP Last administered on 08/16/16 17:47; Start 08/16/16 at 17:30; Stop 08/16/16 at 17:31; Status DC Nicardipine HCl/ Sodium Chloride (Cardene/Iv Sodium Chloride 0.9% 250ml) 270 ml @ 0 mls/hr CONT PRN IV SEE I/O RECORD Last administered on 08/17/16 01:49; Start 08/16/16 at 17:30; Stop 08/17/16 at 09:53; Status DC Ondansetron HCl 4 mg 4 mg PRN Q8HRS PRN IV NAUSEA/VOMITING; Start 08/16/16 at 18 :15; Stop 08/17/16 at 18:14; Status DC Sodium Chloride (Iv Sodium Chloride 0.9% 1000ml Bag) 1,000 ml @ 0 mls/hr Q0M IV ; Start 08/16/16 at 18:09; Stop 08/17/16 at 18:08; Status DC Acetaminophen (Tylenol) 650 mg PRN Q4HRS PRN PO FEVER Last administered on 22:28; Start 08/16/16 at 18:15; Stop 08/17/16 at 18:14; Status DC Allopurinol (Zyloprim) 300 mg DAILY PO Last administered on 08/18/16 08:23; Start 08/17/16 at 09:00 Aspirin (Ecotrin) 81 mg DAILY PO Last administered on 08/18/16 08:25; Start at 09:00 Hydrochlorothiazide (Hydrodiuril) 25 mg DAILY PO ; Start 08/17/16 at 09:00; Stop 08/17/16 at 09:53; Status DC Lisinopril (Prinivil) 40 mg DAILY PO ; Start 08/17/16 at 09:00; Stop 08/17/16 at 09:53; Status DC Carvedilol (Coreg) 25 mg BIDWMEALS PO Last administered on 08/18/16 08:26; Start 08/17/16 at 08:00 Meloxicam (Mobic) 15 mg DAILY PO Last administered on 08/18/16 08:25; Start at 09:00; Stop 08/18/16 at 09:17; Status DC Terazosin HCl (Hytrin) 2 mg DAILY PO Last administered on 08/18/16 08:24; Start 08/17/16 at 09:00 Insulin Aspart (Novolog) 0-5 UNITS TIDWMEALS SQ ; Start 08/17/16 at 08:00; Stop 08/18/16 at 09:17; Status DC Dextrose 12.5 gm PRN Q15MIN PRN IV SEE COMMENTS; Start 08/16/16 at 19:45 Enoxaparin Sodium (Lovenox 40mg Syringe) 40 mg Q24H SQ Last administered on 08/16 22:37; Start 08/16/16 at 22:30; Stop 08/17/16 at 09:46; Status DC Pneumococcal Polyvalent Vaccine (Do NOT chart on this placeholder) 1 each 1X ONCE MC ; Start 08/17/16 at 11:00; Stop 08/17/16 at 11:01; Status UNV Enoxaparin Sodium (Lovenox 60mg Syringe) 60 mg Q12HR SQ Last administered on 21:20; Start 08/17/16 at 10:00 Furosemide (Lasix) 40 mg DAILY PO Last administered on 08/18/16 08:25; Start 08/17/16 at 11:00 Losartan Potassium (Cozaar) 100 mg DAILY PO Last administered on 08/18/16 08: 25; Start 08/17/16 at 11:00 Hydralazine HCl (Apresoline) 10 mg PRN Q4HRS PRN IVP ELEVATED BP, SEE COMMENTS Last administered on 08/17/16 23:21; Start 08/17/16 at 10:00 Atorvastatin Calcium (Lipitor) 10 mg QHS PO Last administered on 08/17/16 21:19 ; Start 08/17/16 at 21:00 Amlodipine Besylate (Norvasc) 10 mg DAILY PO ; Start 08/18/16 at 09:00 Insulin Aspart (Novolog) 0-12 UNITS QIDACHS SQ ; Start 08/18/16 at 11:30; Status UNV Active Scripts Active Reported Cyclobenzaprine Hcl 10 Mg Tablet 10 Mg PO PRN TID PRN Aspir-Low (Aspirin) 81 Mg Tablet.dr 1 Tab PO DAILY Allopurinol 300 Mg Tablet 300 Mg PO DAILY Meloxicam 15 Mg Tablet 15 Mg PO DAILY Metformin Hcl 850 Mg Tablet 0.5 Tab PO BID Lisinopril 40 Mg Tablet 1 Tab PO DAILY Terazosin Hcl 2 Mg Capsule 1 Cap PO DAILY Carvedilol 25 Mg Tablet 25 Mg PO BID Hydrochlorothiazide Tablet (Hydrochlorothiazide) 25 Mg Tablet 25 Mg PO DAILY Vitals/I & O Vital Sign - Last 24 Hours 08/17/16 08/17/16 08/17/16 08/17/16 09:30 10:00 12:25 12:28 Temp 97.3 97.3 Pulse 88 86 85 82 Resp 20 B/P 163/92 174/95 170/117 170/117 Pulse Ox 94 O2 Delivery Nasal Cannula 08/17/16 08/17/16 08/17/16 08/17/16 12:29 12:31 15:07 17:36 Temp 97.5 97.5 Pulse 82 82 81 82 Resp 18 B/P 170/117 170/117 160/96 153/99 Pulse Ox 91 O2 Delivery Nasal Cannula O2 Flow Rate 2.0 08/17/16 08/17/16 08/17/16 08/17/16 18:24 19:20 19:31 23:11 Temp 98.0 98.3 98.0 98.3 Pulse 73 78 77 Resp 16 16 B/P 153/94 147/99 167/114 Pulse Ox 91 93 O2 Delivery Nasal Cannula Nasal Cannula Nasal Cannula O2 Flow Rate 2.0 2.0 2.5 08/17/16 08/18/16 08/18/16 08/18/16 23:21 03:18 07:50 08:24 Temp 98.1 98.1 98.1 98.1 Pulse 75 84 82 89 Resp 18 18 B/P 167/114 149/92 163/100 163/100 Pulse Ox 94 93 O2 Delivery Nasal Cannula Nasal Cannula O2 Flow Rate 2.5 2.0 08/18/16 08/18/16 08:25 08:26 Pulse 84 87 B/P 163/100 163/100 Intake and Output 08/17/16 08/17/16 08/18/16 15:00 23:00 07:00 Intake Total 236 ml 436 ml Output Total 325 ml 325 ml 750 ml Balance -325 ml -89 ml -314 ml ABELARDO HILARIO MD Aug 18, 2016 09:23
[2016-08-18] MEDS: ENOXAPARIN ** NOTE DOSE ** SYRINGE SQ SCH ×2 (10:18→21:10)
[2016-08-18] MEDS: AMLODIPINE BESYLATE 10 MG TABLET PO SCH (10:18)
[2016-08-18 10:52] VITALS: BP 125/75
--- NOTE | 2016-08-18 11:40 | PDOC ---
CARDIO Progress Notes Date and Time Date of Service 08/18/2016 Time of Evaluation 1020 Subjective Subjective: No Chest Pain, No shortness of breath, No Palpitations, No Dizziness Vitals Vitals Vital Signs Date Time Temp Pulse Resp B/P Pulse Ox O2 Delivery O2 Flow Rate FiO2 08/18/16 10:52 97.7 90 18 125/75 93 Nasal Cannula 2.0 97.7 Weight Weight [ ] Input and Output Intake and Output Intake and Output 08/18/16 07:00 Intake Total 672 ml Output Total 1400 ml Balance -728 ml Intake Oral 672 ml Output Urine Total 1400 ml # Voids 1 # Bowel Movements 1 Laboratory Labs Laboratory Tests Test 08/17/16 12:21 08/17/16 16:58 08/18/16 08:11 Glucose (Fingerstick) 98mg/dL (70-99) 92mg/dL (70-99) 92mg/dL (70-99) Microbiology Micro Microbiology 08/16/16 Blood Culture - Preliminary, Resulted NO GROWTH AFTER 1 DAY Physical Exam HEENT: Neck Supple W Full Motion Chest: Symmetric LUNGS: Clear to Auscultation Heart: S1S2, RRR (SR no rhythm ectopies) Abdomen: Soft N/T, Other (obese) Extremities: No Calf Tenderness, Other (1+ bilateral LE pitting edema) Neurology: alert, oriented, follow commands Assessment Assessment 1. Malignant HTN: labile. Hypertensive heart disease. no DOUGLAS per sono 2. Acute diastolic CHF: compensated 3. HCM: nonobstructive per TTE 4. Tobaccoism 5. DM2: well controlled A1C 5.6 6. 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 Improved 7. Morbid obesity/CUMMINGS: BMI 50 8. Suspected GENA Recommendations 1. Continue on losartan/lasix/norvasc/coreg 2. Dietitian consult, smoking cessation 3. Reinforced lifestyle modification- DASH diet, weight loss, smoking cessation , exercise 4. Recommend GENA workup as an outpt. 5. Continue with secondary prevention 6. If no prior stress test, will recommend future testing as an outpt for further risk stratification 7. Also consider alternative for NSAID. 8. Follow up in office in 4 weeks. BEN MCLAUGHLIN APRN Aug 18, 2016 11:39
[2016-08-18 12:13] LABS: ALBUMIN 2.8 g/dL (3.4-5.0); ALBUMIN/GLOBULIN RATIO 0.7 (1.0-1.7); CALCIUM 8.8 mg/dL (8.5-10.1); CREATININE 1.3 mg/dL (0.7-1.3); GFR 70.1; POTASSIUM 3.7 mmol/L (3.5-5.1); TOTAL BILIRUBIN 0.7 mg/dL (0.2-1.0); TOTAL PROTEIN 6.8 g/dL (6.4-8.2)
[2016-08-18 15:00] VITALS: BP 156/96
--- NOTE | 2016-08-18 16:35 | PDOC ---
Provider Note Provider Note dictated RENEE SHOEMAKER MD Aug 18, 2016 16:35
--- NOTE | 2016-08-18 16:56 | CONS ---
DATE OF CONSULTATION: ATTENDING PHYSICIAN: Dr. Ordonez. REASON FOR CONSULTATION: Dyspnea. HISTORY OF PRESENT ILLNESS: The patient is a 50-year-old morbidly obese male with a BMI of 49.8. He presented to the Emergency Room with complaint of 2 weeks of shortness of breath. He denies any cough, no fever, no chills. He has gained about 5 pounds and his lower extremity edema. His BNP was elevated and his chest x-ray was reviewed by me and it shows evidence of CHF along with cardiomegaly. The patient's blood pressure on arrival was 163/100. He states he smoked for 30 years. He just quit a week ago. He has history suggestive of sleep apnea, but he has Medicaid, which does not cover CPAP. Never been formally tested for sleep apnea. Normally is not on oxygen, but he is currently on 2 liters with 93% sats. PAST MEDICAL HISTORY: History of morbid obesity and suspected with history of type 2 diabetes, history of tobaccoism for 30 years, suspected COPD, history of hypertension, dyslipidemia, osteoarthritis and abnormal LFTs. PAST SURGICAL HISTORY: No recent surgeries. ALLERGIES: None. CURRENT MEDICATIONS: Reviewed as listed in the MRAD. REVIEW OF SYSTEMS: Twelve-point systems obtained. Pertinent positives discussed in history of present illness, otherwise noncontributory. All systems that were negative were reviewed as well. SOCIAL HISTORY: Smoked for 30 years before quitting in the last week. PHYSICAL EXAMINATION: VITAL SIGNS: Blood pressure initially was high, 163/100, afebrile, pulse ox ____% on 2 liters. NECK: Supple. LUNGS: Diminished breath sounds. CARDIOVASCULAR: Regular rate and rhythm. ABDOMEN: Soft, morbidly obese. EXTREMITIES: 1+ pitting edema. LABORATORY DATA: Reviewed. Influenza is negative. BUN is 23, creatinine 1.3. White cell count 9.1, hemoglobin 15.9 and platelets are ____. IMPRESSION: 1. Dyspnea secondary to acute diastolic heart failure triggered by hypertensive emergency. The patient's ejection fraction was 55% on recent echo. 2. Suspected underlying chronic obstructive pulmonary disease with 30 years of tobaccoism, quit only one week ago. 3. Morbid obesity with suspected obstructive sleep apnea, but he has Medicaid, which does not cover CPAP. 4. Chronic hypertension. RECOMMENDATIONS: 1. Continue with present oxygen and slowly wean to keep saturation 92% and above. 2. Diuresis per Cardiology. 3. Weight loss is strongly emphasized. 4. Smoking cessation counseling provided. 5. Bronchodilators. 6. Monitor for improvement in leg edema. 7. We will follow along with you. RENEE SHOEMAKER MD DR: RADHA/ekaterina JOB#: [id number] / [id number] ino Ordonez Dr. MTDMaria Alejandra
[2016-08-18 19:35] VITALS: BP 147/85
[2016-08-18] MEDS: IPRATRPIUM/ALBUTEROL 0.5/2.5MG 3 ML NEBU. NEB SCH (19:54)
[2016-08-18] MEDS: ATORVASTATIN CALCIUM 10 MG TABLET. PO SCH (21:09)
[2016-08-18 23:49] VITALS: BP 149/82
[2016-08-19] MEDS: hydrALAZINE 20 MG/ML VIAL. IVP PRN ×2 (02:59→09:47)
[2016-08-19 03:15] VITALS: BP 175/105
[2016-08-19 07:00] VITALS: BP 197/122
[2016-08-19] MEDS: IPRATRPIUM/ALBUTEROL 0.5/2.5MG 3 ML NEBU. NEB SCH ×4 (07:19→19:54)
[2016-08-19] MEDS: INSULIN ASPART 300 UNITS/3 ML INSULN.PEN SQ SCH ×4 (07:30→20:51)
--- NOTE | 2016-08-19 07:59 | PDOC ---
SUBJECTIVE Subjective Pt states that he is still feeling slightly short of air and felt like he wasn' t getting enough oxygen in this morning. He denies chest pain. Slight headache. OBJECTIVE Vital Signs Vital Signs Date Time Temp Pulse Resp B/P Pulse Ox O2 Delivery O2 Flow Rate FiO2 08/19/16 07:19 Nasal Cannula 3.0 08/19/16 03:18 92 Nasal Cannula 2.0 08/19/16 03:15 98.9 92 18 175/105 82 Room Air 98.9 08/19/16 02:59 175/105 08/18/16 23:49 98.3 85 16 149/82 94 Nasal Cannula 2.0 98.3 08/18/16 19:54 96 Nasal Cannula 3.0 08/18/16 19:48 Nasal Cannula 2.0 08/18/16 19:35 98.3 82 18 147/85 93 Nasal Cannula 2.0 98.3 08/18/16 17:32 79 156/96 08/18/16 15:00 97.6 79 16 156/96 93 Nasal Cannula 2.0 97.6 08/18/16 10:52 97.7 90 18 125/75 93 Nasal Cannula 2.0 97.7 08/18/16 10:18 90 128/75 08/18/16 08:26 87 163/100 08/18/16 08:25 84 163/100 08/18/16 08:24 89 163/100 08/18/16 08:00 Nasal Cannula 2.0 I & O Intake and Output 08/19/16 07:00 Intake Total 2220 ml Output Total 300 ml Balance 1920 ml Intake Oral 2220 ml Output Urine Total 300 ml # Voids 3 PHYSICAL EXAM Physical Exam GEN: morbidly obese, NAD, AOx3 HEENT: dry mucous membranes, EOMI, no scleral icterus/injection, upper airway noises heard from pt's nose Cardiac: RRR, no M/R/G Lungs: CTAB, regular breathing rate and effort Abd: soft, non distended, NTTP Ext: 1+ pitting edema RLE, no erythema visualized LE Nuero: CN2-12 GI Psych: mood and affect congruent, decreased GAF ASSESSMENT/PLAN Assessment/Plan Pt is a 50yo M admitted for respiratory distress 2/2 CHF exacerbation 1)Respiratory failure- 2/2 CHF exacerbation and likely underlying COPD. Pulmonary and Cardiology following. Improving but pt still requiring O2. Did not have an oxygen requirement previously 2)CHF Exacerbation- pt currently receiving Lasix 40mg qday. Poor net I/O per documentation yesterday, CTM 3)Likely underlying COPD- pt was started on Duonebs 4)Hypertensive emergency- Cardiology following. BP still elevated this morning and pt still requiring prn Hydralazine. Currently receiving Norvasc 10mg, Losartan 100mg and Coreg 25mg BID. Will start HCTZ 12.5mg 5)Likely underlying GENA- will need eval outpatient 6)HLD- pt currently receiving Atorvastatin 10mg 7)BPH- pt on Terazosin 2mg 8)Gout- pt continued on Allopurinol 300mg 9)Hypernatremia- likely 2/2 diuretic use. CTM 10)DM2- pt's HbA1C was 5.2. Pt not receiving any diabetic medications. Has SSI ordered but not receiving any insulin Problems: COMMENT Lab Laboratory Tests Test 08/18/16 08:11 08/18/16 11:40 08/18/16 12:03 08/18/16 16:21 Glucose (Fingerstick) 92mg/dL (70-99) 130mg/dL (70-99) 99mg/dL (70-99) Sodium Level 146mmol/L (136-145) Potassium Level 3.7mmol/L (3.5-5.1) Chloride Level 102mmol/L (98-107) Carbon Dioxide Level 40mmol/L (21-32) Anion Gap 4 (6-14) Blood Urea Nitrogen 23mg/dL (8-26) Creatinine 1.3mg/dL (0.7-1.3) Estimated GFR (Cockcroft-Gault) 70.1 BUN/Creatinine Ratio 18 (6-20) Glucose Level 129mg/dL (70-99) Calcium Level 8.8mg/dL (8.5-10.1) Total Bilirubin 0.7mg/dL (0.2-1.0) Aspartate Amino Transf (AST/SGOT) 34U/L (15-37) Alanine Aminotransferase (ALT/SGPT) 158U/L (16-63) Alkaline Phosphatase 76U/L (46-116) Total Protein 6.8g/dL (6.4-8.2) Albumin 2.8g/dL (3.4-5.0) Albumin/Globulin Ratio 0.7 (1.0-1.7) BRANT BANG MD Aug 19, 2016 07:59
[2016-08-19] MEDS: ENOXAPARIN ** NOTE DOSE ** SYRINGE SQ SCH ×2 (08:38→20:46)
[2016-08-19] MEDS: CARVEDILOL 12.5 MG TABLET PO SCH ×2 (08:40→17:54)
[2016-08-19] MEDS: FUROSEMIDE 40 MG TABLET PO SCH (08:40)
[2016-08-19] MEDS: TERAZOSIN 1 MG CAPSULE. PO SCH (08:41)
[2016-08-19] MEDS: ALLOPURINOL 300 MG TABLET. PO SCH (08:42)
[2016-08-19] MEDS: AMLODIPINE BESYLATE 10 MG TABLET PO SCH (08:42)
[2016-08-19] MEDS: LOSARTAN POTASSIUM 50 MG TABLET. PO SCH (08:42)
[2016-08-19] MEDS: ASPIRIN ENTERIC COATED 81 MG TABLET.DR. PO SCH (08:42)
[2016-08-19] MEDS: HYDROCHLOROTHIAZIDE 12.5 MG CAPSULE. PO SCH (08:45)
[2016-08-19 10:53] VITALS: BP 139/81
--- NOTE | 2016-08-19 12:04 | PDOC ---
PULMONARY PROGRESS NOTES Subjective no increase SOA BP still not under control Vitals Vital Signs Date Time Temp Pulse Resp B/P Pulse Ox O2 Delivery O2 Flow Rate FiO2 08/19/16 10:53 98.0 99 23 139/81 93 Nasal Cannula 2.0 98.0 General: Alert, No acute distress Lungs: Clear Cardiovascular: S1 Abdomen: Soft Neuro Exam: Alert Extremities: Other (1+edema) Labs Laboratory Tests Test 08/17/16 12:21 08/17/16 16:58 08/17/16 20:54 08/18/16 08:11 Glucose (Fingerstick) 98mg/dL (70-99) 92mg/dL (70-99) 146mg/dL (70-99) 92mg/dL (70-99) Test 08/18/16 11:40 08/18/16 12:03 08/18/16 16:21 08/19/16 08:13 Sodium Level 146mmol/L (136-145) Potassium Level 3.7mmol/L (3.5-5.1) Chloride Level 102mmol/L (98-107) Carbon Dioxide Level 40mmol/L (21-32) Anion Gap 4 (6-14) Blood Urea Nitrogen 23mg/dL (8-26) Creatinine 1.3mg/dL (0.7-1.3) Estimated GFR (Cockcroft-Gault) 70.1 BUN/Creatinine Ratio 18 (6-20) Glucose Level 129mg/dL (70-99) Calcium Level 8.8mg/dL (8.5-10.1) Total Bilirubin 0.7mg/dL (0.2-1.0) Aspartate Amino Transf (AST/SGOT) 34U/L (15-37) Alanine Aminotransferase (ALT/SGPT) 158U/L (16-63) Alkaline Phosphatase 76U/L (46-116) Total Protein 6.8g/dL (6.4-8.2) Albumin 2.8g/dL (3.4-5.0) Albumin/Globulin Ratio 0.7 (1.0-1.7) Glucose (Fingerstick) 130mg/dL (70-99) 99mg/dL (70-99) 107mg/dL (70-99) Test 08/19/16 10:58 Glucose (Fingerstick) 135mg/dL (70-99) Laboratory Tests Test 08/18/16 16:21 08/19/16 08:13 08/19/16 10:58 Glucose (Fingerstick) 99mg/dL (70-99) 107mg/dL (70-99) 135mg/dL (70-99) Medications Active Scripts Medications Dose Route/Sig Days Date Category Cyclobenzaprine Hcl 10 Mg Tablet 10 Mg PO PRN TID PRN 08/17/16 Reported Aspir-Low (Aspirin) 81 Mg Tablet.dr 1 Tab PO DAILY 08/16/16 Reported Allopurinol 300 Mg Tablet 300 Mg PO DAILY 03/31/15 Reported Meloxicam 15 Mg Tablet 15 Mg PO DAILY 03/08/15 Reported Metformin Hcl 850 Mg Tablet 0.5 Tab PO BID 01/08/15 Reported Lisinopril 40 Mg Tablet 1 Tab PO DAILY 01/08/15 Reported Terazosin Hcl 2 Mg Capsule 1 Cap PO DAILY 01/08/15 Reported Carvedilol 25 Mg Tablet 25 Mg PO BID 07/18/13 Reported Hydrochlorothiazide Tablet (Hydrochlorothiazide) 25 Mg Tablet 25 Mg PO DAILY 07/18/13 Reported Impression . 1. Dyspnea secondary to acute diastolic heart failure triggered by hypertensive emergency. The patient's ejection fraction was 55% on recent echo. 2. Suspected underlying chronic obstructive pulmonary disease with 30 years of tobaccoism, quit only one week ago. 3. Morbid obesity with suspected obstructive sleep apnea, but he has Medicaid, which does not cover CPAP. 4. Chronic hypertension. Plan . 1. Continue with present oxygen and slowly wean to keep saturation 92% and above. 2. Diuresis per Cardiology. 3. Weight loss is strongly emphasized. 4. Smoking cessation counseling provided. 5. Bronchodilators. 6. Monitor for improvement in leg edema. 7. BP still not under control. RENEE SHOEMAKER MD Aug 19, 2016 12:04
[2016-08-19 14:15] VITALS: BP 119/73
[2016-08-19 19:00] VITALS: BP 144/87
[2016-08-19] MEDS: ATORVASTATIN CALCIUM 10 MG TABLET. PO SCH (20:45)
[2016-08-19 23:30] VITALS: BP 137/86
[2016-08-20] VITALS (7 sets, daily range): BP systolic 140–177; BP diastolic 88–128
[2016-08-20 06:45] LABS: CALCIUM 8.8 mg/dL (8.5-10.1); CREATININE 1.2 mg/dL (0.7-1.3); GFR 76.9; POTASSIUM 3.8 mmol/L (3.5-5.1)
[2016-08-20] MEDS: IPRATRPIUM/ALBUTEROL 0.5/2.5MG 3 ML NEBU. NEB SCH ×4 (07:21→19:55)
[2016-08-20] MEDS: INSULIN ASPART 300 UNITS/3 ML INSULN.PEN SQ SCH ×4 (07:30→20:23)
[2016-08-20] MEDS: HYDROCHLOROTHIAZIDE 12.5 MG CAPSULE. PO SCH (08:04)
[2016-08-20] MEDS: ALLOPURINOL 300 MG TABLET. PO SCH (08:04)
[2016-08-20] MEDS: FUROSEMIDE 40 MG TABLET PO SCH (08:04)
[2016-08-20] MEDS: ASPIRIN ENTERIC COATED 81 MG TABLET.DR. PO SCH (08:04)
[2016-08-20] MEDS: LOSARTAN POTASSIUM 50 MG TABLET. PO SCH (08:05)
[2016-08-20] MEDS: AMLODIPINE BESYLATE 10 MG TABLET PO SCH (08:05)
[2016-08-20] MEDS: TERAZOSIN 1 MG CAPSULE. PO SCH (08:06)
[2016-08-20] MEDS: CARVEDILOL 12.5 MG TABLET PO SCH ×2 (08:06→16:58)
[2016-08-20] MEDS: ENOXAPARIN ** NOTE DOSE ** SYRINGE SQ SCH ×2 (08:07→20:21)
--- NOTE | 2016-08-20 10:41 | PDOC ---
SUBJECTIVE Subjective Pt feels that his breathing has improved today. Not having any other issues. OBJECTIVE Vital Signs Vital Signs Date Time Temp Pulse Resp B/P Pulse Ox O2 Delivery O2 Flow Rate FiO2 08/20/16 09:02 87 140/96 08/20/16 08:06 82 177/128 08/20/16 08:06 82 177/128 08/20/16 08:05 82 177/128 08/20/16 08:05 82 177/128 08/20/16 08:00 Nasal Cannula 2.0 08/20/16 07:21 94 Nasal Cannula 2.0 08/20/16 07:00 98.1 82 18 177/128 92 Nasal Cannula 2.0 98.1 08/20/16 03:00 97.5 85 18 156/95 94 Nasal Cannula 2.0 97.5 08/19/16 23:30 98.2 84 22 137/86 92 Nasal Cannula 2.0 98.2 08/19/16 19:57 Nasal Cannula 2.0 08/19/16 19:56 97 Nasal Cannula 2.0 08/19/16 19:00 98.5 88 22 144/87 91 Nasal Cannula 2.0 98.5 08/19/16 17:54 78 119/73 08/19/16 16:07 94 Nasal Cannula 2.0 08/19/16 14:15 98.2 78 23 119/73 93 Nasal Cannula 2.0 98.2 08/19/16 13:04 85 Room Air 08/19/16 10:53 98.0 99 23 139/81 93 Nasal Cannula 2.0 98.0 I & O Intake and Output 08/20/16 07:00 Intake Total 1920 ml Output Total 300 ml Balance 1620 ml Intake Oral 1920 ml Output Urine Total 300 ml # Voids 2 PHYSICAL EXAM Physical Exam GEN: morbidly obese, NAD, AOx3 HEENT: dry mucous membranes, EOMI, no scleral icterus/injection, upper airway noises heard from pt's nose Cardiac: RRR, no M/R/G Lungs: CTAB, regular breathing rate and effort Abd: soft, non distended, NTTP Ext: no erythema/edema LE bilaterally Nuero: CN2-12 GI Psych: mood and affect congruent ASSESSMENT/PLAN Assessment/Plan Pt is a 50yo M admitted for respiratory distress 2/2 CHF exacerbation 1)Respiratory failure- 2/2 CHF exacerbation and likely underlying COPD. Pulmonary and Cardiology following. Improving but pt still requiring O2. Did not have an oxygen requirement previously 2)CHF Exacerbation- pt currently receiving Lasix 40mg qday. Edema in LE significantly improved 3)Likely underlying COPD- pt was started on Duonebs 4)Hypertensive emergency- Cardiology following. BP improving but still elevated. Currently receiving Norvasc 10mg, Losartan 100mg and Coreg 25mg BID. Started HCTZ yesterday, will increase to 25mg 5)Likely underlying GENA- will need eval outpatient 6)HLD- pt currently receiving Atorvastatin 10mg 7)BPH- pt on Terazosin 2mg 8)Gout- pt continued on Allopurinol 300mg 9)Hypernatremia- likely 2/2 diuretic use. CTM 10)DM2- pt's HbA1C was 5.2. Pt not receiving any diabetic medications. Has SSI ordered but not receiving any insulin COMMENT Lab Laboratory Tests Test 08/19/16 10:58 08/19/16 16:58 08/19/16 20:55 08/20/16 05:00 Glucose (Fingerstick) 135mg/dL (70-99) 108mg/dL (70-99) 118mg/dL (70-99) Sodium Level 145mmol/L (136-145) Potassium Level 3.8mmol/L (3.5-5.1) Chloride Level 103mmol/L (98-107) Carbon Dioxide Level 39mmol/L (21-32) Anion Gap 3 (6-14) Blood Urea Nitrogen 23mg/dL (8-26) Creatinine 1.2mg/dL (0.7-1.3) Estimated GFR (Cockcroft-Gault) 76.9 Glucose Level 92mg/dL (70-99) Calcium Level 8.8mg/dL (8.5-10.1) BRANT BANG MD Aug 20, 2016 10:41
--- NOTE | 2016-08-20 13:43 | PDOC ---
PULMONARY PROGRESS NOTES Subjective no increase SOA BP still not under control Vitals Vital Signs Date Time Temp Pulse Resp B/P Pulse Ox O2 Delivery O2 Flow Rate FiO2 08/20/16 11:07 Nasal Cannula 2.0 08/20/16 11:00 98.0 91 24 169/111 93 98.0 General: Alert, No acute distress Lungs: Clear Cardiovascular: S1 Abdomen: Soft Neuro Exam: Alert Extremities: Other (1+edema) Labs Laboratory Tests Test 08/18/16 16:21 08/18/16 21:09 08/19/16 08:13 08/19/16 10:58 Glucose (Fingerstick) 99mg/dL (70-99) 142mg/dL (70-99) 107mg/dL (70-99) 135mg/dL (70-99) Test 08/19/16 16:58 08/19/16 20:55 08/20/16 05:00 08/20/16 11:31 Glucose (Fingerstick) 108mg/dL (70-99) 118mg/dL (70-99) 148mg/dL (70-99) Sodium Level 145mmol/L (136-145) Potassium Level 3.8mmol/L (3.5-5.1) Chloride Level 103mmol/L (98-107) Carbon Dioxide Level 39mmol/L (21-32) Anion Gap 3 (6-14) Blood Urea Nitrogen 23mg/dL (8-26) Creatinine 1.2mg/dL (0.7-1.3) Estimated GFR (Cockcroft-Gault) 76.9 Glucose Level 92mg/dL (70-99) Calcium Level 8.8mg/dL (8.5-10.1) Laboratory Tests Test 08/19/16 16:58 08/19/16 20:55 08/20/16 05:00 08/20/16 11:31 Glucose (Fingerstick) 108mg/dL (70-99) 118mg/dL (70-99) 148mg/dL (70-99) Sodium Level 145mmol/L (136-145) Potassium Level 3.8mmol/L (3.5-5.1) Chloride Level 103mmol/L (98-107) Carbon Dioxide Level 39mmol/L (21-32) Anion Gap 3 (6-14) Blood Urea Nitrogen 23mg/dL (8-26) Creatinine 1.2mg/dL (0.7-1.3) Estimated GFR (Cockcroft-Gault) 76.9 Glucose Level 92mg/dL (70-99) Calcium Level 8.8mg/dL (8.5-10.1) Medications Active Scripts Medications Dose Route/Sig Days Date Category Cyclobenzaprine Hcl 10 Mg Tablet 10 Mg PO PRN TID PRN 08/17/16 Reported Aspir-Low (Aspirin) 81 Mg Tablet.dr 1 Tab PO DAILY 08/16/16 Reported Allopurinol 300 Mg Tablet 300 Mg PO DAILY 03/31/15 Reported Meloxicam 15 Mg Tablet 15 Mg PO DAILY 03/08/15 Reported Metformin Hcl 850 Mg Tablet 0.5 Tab PO BID 01/08/15 Reported Lisinopril 40 Mg Tablet 1 Tab PO DAILY 01/08/15 Reported Terazosin Hcl 2 Mg Capsule 1 Cap PO DAILY 01/08/15 Reported Carvedilol 25 Mg Tablet 25 Mg PO BID 07/18/13 Reported Hydrochlorothiazide Tablet (Hydrochlorothiazide) 25 Mg Tablet 25 Mg PO DAILY 07/18/13 Reported Impression . 1. Dyspnea secondary to acute diastolic heart failure triggered by hypertensive emergency. The patient's ejection fraction was 55% on recent echo. 2. Suspected underlying chronic obstructive pulmonary disease with 30 years of tobaccoism, quit only one week ago. 3. Morbid obesity with suspected obstructive sleep apnea, but he has Medicaid, which does not cover CPAP. 4. Chronic systemic hypertension. Plan . 1. Continue with present oxygen and slowly wean to keep saturation 92% and above. 2. Diuresis per Cardiology. 3. Weight loss is strongly emphasized. 4. Smoking cessation counseling provided. 5. Bronchodilators. 6. Monitor for improvement in leg edema. 7. BP still not under control. RENEE SHOEMAKER MD Aug 20, 2016 13:43
[2016-08-20] MEDS: ATORVASTATIN CALCIUM 10 MG TABLET. PO SCH (20:20)
[2016-08-21 03:26] VITALS: BP 173/101
[2016-08-21] MEDS: hydrALAZINE 20 MG/ML VIAL. IVP PRN (03:41)
[2016-08-21 07:30] VITALS: BP 166/99
[2016-08-21] MEDS: INSULIN ASPART 300 UNITS/3 ML INSULN.PEN SQ SCH ×3 (07:30→16:30)
--- NOTE | 2016-08-21 07:43 | PDOC ---
SUBJECTIVE Subjective Doing better overall. Has walked around a little bit. Denies any chest pain. Breathing is doing better. OBJECTIVE Vital Signs Vital Signs Date Time Temp Pulse Resp B/P Pulse Ox O2 Delivery O2 Flow Rate FiO2 08/21/16 03:41 80 173/101 08/21/16 03:26 98.3 80 18 173/101 96 Nasal Cannula 2.0 98.3 08/20/16 22:38 98.5 86 18 151/91 92 Nasal Cannula 2.0 98.5 08/20/16 19:57 92 Nasal Cannula 2.0 08/20/16 19:25 98.8 98 16 148/88 94 Nasal Cannula 2.0 98.8 08/20/16 19:00 Nasal Cannula 2.0 08/20/16 16:58 91 149/96 08/20/16 15:11 92 Nasal Cannula 2.0 08/20/16 15:00 98.6 91 22 149/96 95 Nasal Cannula 2.0 98.6 08/20/16 11:07 Nasal Cannula 2.0 08/20/16 11:00 98.0 91 24 169/111 93 Nasal Cannula 2.0 98.0 08/20/16 09:02 87 140/96 08/20/16 08:06 82 177/128 08/20/16 08:06 82 177/128 08/20/16 08:05 82 177/128 08/20/16 08:05 82 177/128 08/20/16 08:00 Nasal Cannula 2.0 I & O Intake and Output 08/21/16 07:00 Intake Total 600 ml Output Total 900 ml Balance -300 ml Intake Oral 600 ml Output Urine Total 900 ml PHYSICAL EXAM Physical Exam General: No acute distress. Sitting in the bed. Mental status: Alert and oriented Chest: Air movement: Decreased throughout. Auscultation: clear throughout Cardiovascular: Rate: normal. Rhythm: regular. Murmur: none, distant heart sounds. Abdomen: Bowel sounds: normal. Soft, obese. Nondistended. Tenderness: nontender to palpation. No guarding. No rebound. Extremities: No lower extremity edema. ASSESSMENT/PLAN Assessment/Plan 1)Respiratory failure- 2/2 CHF exacerbation and likely underlying COPD. Pulmonary and Cardiology following. Improving but pt still requiring O2. We'll do a 6 minute walk test prior to discharge and see if he qualifies for home O2 well ambulatory. 2)CHF Exacerbation due to underlying diastolic dysfunction- pt currently receiving Lasix 40mg qday. Edema in LE significantly improved 3)Likely underlying COPD- pt was started on Duonebs, transition to metered-dose inhaler when necessary 4)Hypertensive emergency- Cardiology following. BP improving but still elevated. Currently receiving Norvasc 10mg, Losartan 100mg and Coreg 25mg BID. Started HCTZ. We will add hydralazine. 5)Likely underlying GENA-will not qualify for sleep study secondary to insurance 6)HLD- pt currently receiving Atorvastatin 10mg 7)BPH- pt on Terazosin 2mg 8)Gout- pt continued on Allopurinol 300mg 9)Hypernatremia-improved. 10)DM2- pt's HbA1C was 5.2. Pt not receiving any diabetic medications. Has SSI ordered but not receiving any insulin 11. Disposition: Plan for discharge today. 6 minute walk test prior to discharge. Arrangements for home O2 if needed. Follow up with cardiology in 4 weeks. Follow-up with pulmonology. Recommendations. I'll see him in 1 week or so for adjustment of blood pressure medications as needed. Problems: COMMENT Lab Laboratory Tests Test 08/20/16 08:03 08/20/16 11:31 08/20/16 16:57 08/20/16 20:19 Glucose (Fingerstick) 91mg/dL (70-99) 148mg/dL (70-99) 82mg/dL (70-99) 121mg/dL (70-99) LISA CHAVEZ MD Aug 21, 2016 07:43
--- NOTE | 2016-08-21 07:45 | DISCH ---
DISCHARGE INSTRUCTIONS Condition on Discharge Condition on Discharge: Stable Activity After Discharge Activity Instructions for Disc: Activity as tolerated Diet after Discharge Diet after Discharge: Cardiac Checks after Discharge Checks after discharge: Check blood press - daily, Weigh Yourself Daily Contacting the DR. after DC Call your doctor for: If your condition worsens Follow-Up Follow up with: Cardiology in 4 weeks, pulm per their rec Follow Up With: Dr Chavez in 1-2 weeks. Treatment/Equipment after DC Discharge Respiratory Equipmen: Oxygen (if qualifies on 6 min walk prior to discharge) LISA CHAVEZ MD Aug 21, 2016 07:45
[2016-08-21] MEDS: IPRATRPIUM/ALBUTEROL 0.5/2.5MG 3 ML NEBU. NEB SCH ×4 (07:54→19:45)
[2016-08-21] MEDS ORDERED: ATOR10TA60 PO (07:55)
[2016-08-21] MEDS ORDERED: PROAIR HFA8.5 GM INH (07:55)
[2016-08-21] MEDS ORDERED: FURO40TA4 PO (07:55)
[2016-08-21] MEDS ORDERED: POTA10TA10 PO (07:55)
[2016-08-21] MEDS ORDERED: HYDR-2868 PO (07:55)
[2016-08-21] MEDS: ENOXAPARIN ** NOTE DOSE ** SYRINGE SQ SCH (08:28)
[2016-08-21] MEDS: FUROSEMIDE 40 MG TABLET PO SCH (08:30)
[2016-08-21] MEDS: LOSARTAN POTASSIUM 50 MG TABLET. PO SCH (08:31)
[2016-08-21] MEDS: CARVEDILOL 12.5 MG TABLET PO SCH ×2 (08:31→18:12)
[2016-08-21] MEDS: ALLOPURINOL 300 MG TABLET. PO SCH (08:32)
[2016-08-21] MEDS: TERAZOSIN 1 MG CAPSULE. PO SCH (08:32)
[2016-08-21] MEDS: ASPIRIN ENTERIC COATED 81 MG TABLET.DR. PO SCH (08:33)
[2016-08-21] MEDS: AMLODIPINE BESYLATE 10 MG TABLET PO SCH (08:33)
[2016-08-21] MEDS ORDERED: HYDROCHLOROTHIAZIDE 25 MG TABLET PO SCH (09:00)
[2016-08-21] MEDS ORDERED: HYDRALAZINE 25 MG TABLET PO SCH (09:00)
[2016-08-21 15:07] VITALS: BP 146/102
[2016-08-21 18:12] VITALS: BP 146/102
== END 2016-08-21 20:00 | disposition home or self-care (01) | DRG 291 ==
LOC: ER 14:11 → 2 NORTH 16:56
PROVIDERS: ADMIT Family Medicine; ATTEND Family Medicine
DX: I50.33 Acute on chronic diastolic (congestive) heart failure (principal); J96.00 Acute respiratory failure, unspecified whether with hypoxia or hypercapnia; I13.0 Hypertensive heart and chronic kidney disease with heart failure and stage 1 through stage 4 chronic kidney disease, or unspecified chronic kidney disease; E44.0 Moderate protein-calorie malnutrition; E87.0 Hyperosmolality and hypernatremia; I16.1 Hypertensive emergency; J98.11 Atelectasis; Z68.43 Body mass index [BMI] 50.0-59.9, adult; N18.2 Chronic kidney disease, stage 2 (mild); E11.42 Type 2 diabetes mellitus with diabetic polyneuropathy; I16.0 Hypertensive urgency; E11.22 Type 2 diabetes mellitus with diabetic chronic kidney disease; E66.01 Morbid (severe) obesity due to excess calories; E78.00 Pure hypercholesterolemia, unspecified; E78.5 Hyperlipidemia, unspecified; F17.210 Nicotine dependence, cigarettes, uncomplicated; G47.00 Insomnia, unspecified; G47.33 Obstructive sleep apnea (adult) (pediatric); G89.29 Other chronic pain; M19.90 Unspecified osteoarthritis, unspecified site; J44.9 Chronic obstructive pulmonary disease, unspecified; J45.909 Unspecified asthma, uncomplicated; K21.9 Gastro-esophageal reflux disease without esophagitis; M10.9 Gout, unspecified; N40.0 Benign prostatic hyperplasia without lower urinary tract symptoms; Z82.49 Family history of ischemic heart disease and other diseases of the circulatory system; Z83.3 Family history of diabetes mellitus; Z87.442 Personal history of urinary calculi; Z91.19 Patient's noncompliance with other medical treatment and regimen; Z79.899 Other long term (current) drug therapy; Z79.82 Long term (current) use of aspirin
CPT/HCPCS: 36415; 71010; 71020; 76770; 80048; 80053; 80061; 81001; 82553; 82947; 83036; 83605; 83880; 84443; 84484; 85027; 87040; 87804; 93005; 93306; 94250; 94620; 94640; 94760; 96374; 99406; J0360; J1650; J1815; J1940; J7050; J7620; 97116; 97530; 97535; 99291-25; J7030